=== PATIENT | female | born 1960 | race Caucasian/White ===

== ENCOUNTER 2020-03-20 10:36 | Emergency (ER) | payer OTHER ==
[2020-03-20] MEDS ORDERED: HYDROmorphone 0.5 MG/0.5 ML Syringe IVPUSH ONE ×3 (11:08→15:03)
[2020-03-20] MEDS ORDERED: Metoclopramide 10 MG/2 ML SDV IVPUSH ONE (11:08)
--- NOTE | 2020-03-20 11:13 | EDM.PDOC ---
ED HPI GENERAL MEDICAL PROBLEM - General Chief Complaint: Lower Extremity Injury/Pain Stated Complaint: RT ANKLE INJURY Time Seen by Provider: 03/20/20 11:07 Source of Information: Reports: Patient, Family History Limitations: Reports: No Limitations - History of Present Illness INITIAL COMMENTS - FREE TEXT/NARRATIVE: 59-year-old female presents to the ED with an acute injury to her right ankle. She states she missed 1 of the stairs coming out of there recreational vehicle this morning and landed hard on the ground with a twisting injury to the ankle. It did cause her to fall to the ground but she claims no injuries to her head neck hands ribs or shoulders. Her right ankle is obviously deformed and foot is white in color. Injury occurred within the last half hour. No open wounds identified. Male was around 0730 hrs. this morning and when she had pancakes and a bit of [place]. Onset: Today, Sudden Onset Date: 03/20/20 Onset Time: 10:30 Duration: Minutes: Location: Reports: Lower Extremity, Right (Injury to the right ankle.) Quality: Reports: Ache, Throbbing Severity: Severe Improves with: Reports: Rest (9 out of 10) Worsens with: Reports: Other Context: Reports: Trauma (Trip injury causing severe twisting force to the right ankle.). Denies: Activity, Exercise (Any attempts to move the ankle causes severe pain.), Lifting, Sick Contact Associated Symptoms: Reports: No Other Symptoms Treatments CERAMICS TECHNICIAN: Reports: Other (see below) (None.) Right Ankle Pain Score (Numeric/FACES): 8 - Related Data Allergies Allergy/AdvReac Type Severity Reaction Status Date / Time No Known Allergies Allergy Verified 03/20/20 11:03 Home Meds: Home Meds Cyclobenzaprine [Flexeril] 10 mg PO BID #10 tab 03/20/20 [Rx] Esomeprazole [NexIUM] 40 mg PO DAILY 03/20/20 [History] Loratadine 10 mg PO DAILY 03/20/20 [History] oxyCODONE HCl/Acetaminophen [Percocet 5-325 mg Tablet] 1 - 2 each PO Q4H PRN #30 tablet 03/20/20 [Rx] Past Medical History HEENT History: Reports: Allergic Rhinitis Gastrointestinal History: Reports: GERD Social & Family History - Living Situation & Occupation Living situation: Reports: Review of Systems - Review of Systems Review Of Systems: See Below Constitutional: Reports: No Symptoms Eyes: Reports: No Symptoms Ears: Reports: No Symptoms Nose: Reports: No Symptoms Mouth/Throat: Reports: No Symptoms Respiratory: Reports: No Symptoms Cardiovascular: Reports: No Symptoms GI/Abdominal: Reports: No Symptoms Genitourinary: Reports: No Symptoms Musculoskeletal: Reports: Other (Injury to the right ankle.) Skin: Reports: No Symptoms Neurological: Reports: No Symptoms Psychiatric: Reports: No Symptoms ED EXAM, GENERAL - Physical Exam Exam: See Below Exam Limited By: No Limitations General Appearance: Alert, WD/WN, Moderate Distress, Other (Vitals were not entered into the chart at the time of exam.) Eye Exam: Bilateral Eye: Normal Inspection, PERRL Head: Atraumatic, Normocephalic, Other Neck: Normal Inspection (No outward signs of head or facial trauma.), Supple, Non-Tender, Full Range of Motion. No: Lymphadenopathy (L), Lymphadenopathy (R) Respiratory/Chest: No Respiratory Distress, Lungs Clear, Normal Breath Sounds Cardiovascular: Normal Peripheral Pulses, Regular Rate, Rhythm, No Edema, No Gallop, No Murmur, No Rub Peripheral Pulses: 1+: Posterior Tibial (R), Dorsalis Pedis (R), 2+: Dorsalis Pedis (L) (Does have palpable pulses in her dorsalis pedis.) GI/Abdominal: Normal Bowel Sounds, Soft, Non-Tender, No Organomegaly, No Mass, Pelvis Stable Extremities: Other (Examination of the right lower extremity shows no pain on firm palpation over the proximal fibular head. Squeeze test midshaft causes pain in her ankle. On the ankle itself it is obviously fractured and appears to be dislocated. The foot is white in color but there is still a palpable dorsalis pedis pulse. No attempts to move the foot were carried out.) Neurological: Alert, Oriented, CN II-XII Intact, Normal Cognition Psychiatric: Anxious, Other Skin Exam: Warm, Dry (Deal of pain.), Intact, Normal Color ED TRAUMA EXTREMITY PROCEDURES - Splinting Right Lower Extremity Pre-Procedure NV Status: Normal Post-Procedure NV Status: Normal (Below knee right leg) Splint Material: Fiberglass Splint Design: Stirrup, Posterior Applied & Form Fitted By: Provider Provider Post-Splint Application NV Check: NV Status Normal Complications: No ED PROCEDURAL SEDATION - Pre Procedure Indications: fracture reduction Preparations: procedure explained, consent signed, oxygen, continuous pulse oximeter, suction, continuous mounter sousaphones, constant attendance - Physical Exam Airway: normal anatomy Cardiovascular: normal heart sounds Respiratory: normal breath sounds Neurological: alert, responsive, NAD Meilampati Classification: 1 (soft palate, anterior/posterior tonsillar pill ars, uvula visible) - Procedure Sedation Sedation: versed (parenteral), fentanyl (4 mg 50 mcg) ASA Classification: 1 (Normal healthy patient) - Intra Procedure Condition during procedure: moderately sedated, oxygenation stable, maintained airway well, handled secretions adequately Complications: none Reversal: none - Post Procedure Condition after procedure: alert, NAD, responds to verbal stimuli - Discharge Condition Patient returned to pre-procedure baseline: Yes Alert prior to discharge: Yes Ambulatory with assistance: Yes Vital signs normal: Yes Time spent with sedated patient: other (15 minutes) EKG INTERPRETATION EKG Date: 03/20/20 Time: 11:20 Rhythm: NSR Rate (Beats/Min): 90 [place]: Normal P-Wave: Present (That her left atrial enlargement. P wave is inverted in lead V1 nonspecific finding) QRS: Other (Mildly decreased voltage limb leads) ST-T: Normal QT: Prolonged (Minimally prolonged.) EKG Interpretation Comments: Borderline ECG Course - Vital Signs Last Recorded V/S: Last Vital Signs Temp 35.9 C L 03/20/20 11:00 Pulse 86 03/20/20 11:00 Resp 16 03/20/20 11:00 BP 155/85 H 03/20/20 11:00 Pulse Ox 98 03/20/20 11:00 - Orders/Labs/Meds Orders: Active Orders 24 hr Category Date Time Status EKG Documentation Completion [RC] STAT Care 03/20/20 11:15 Active CORONAVIRUS COVID-19 RUSS [MOLEC] Stat Lab 03/20/20 11:31 Ordered CORONAVIRUS COVID-19 PCR PHL Stat Lab 03/20/20 11:32 Ordered URINALYSIS W/MICROSCOPIC [UA W/MICROSCOPIC] [URIN] Stat Lab 03/20/20 11:16 Ordered Dextrose 5%-Lactated Ringers 1,000 ml Med 03/20/20 11:15 Active IV ASDIRECTED Durable Medical Equipment for Discharge [DME for Oth 03/20/20 13:08 Ordered Discharge] [COMM] Stat Medication Orders Dextrose/Lactated Ringer's (Dextrose 5%-Lactated Ringers) 1,000 mls @ 150 mls/hr IV ASDIRECTED VERONICA Last Admin: 03/20/20 11:30 Dose: 150 mls/hr Documented by: ASHLEY Labs: Laboratory Tests 03/20/20 03/20/20 03/20/20 Range/Units 11:25 11:25 11:25 WBC 8.01 (3.98-10.04) K/mm3 RBC 5.40 H (3.98-5.22) M/mm3 Hgb 16.3 H (11.2-15.7) gm/dl Hct 48.1 H (34.1-44.9) % MCV 89.1 (79.4-94.8) fl MCH 30.2 (25.6-32.2) pg MCHC 33.9 (32.2-35.5) g/dl RDW Std Deviation 41.6 (36.4-46.3) fL Plt Count 252 (182-369) K/mm3 MPV 9.5 (9.4-12.3) fl Neut % (Auto) 43.1 (34.0-71.1) % Lymph % (Auto) 47.1 (19.3-51.7) % [place] % (Auto) 7.6 (4.7-12.5) % Eos % (Auto) 1.6 (0.7-5.8) Baso % (Auto) 0.4 (0.1-1.2) % Neut # (Auto) 3.45 (1.56-6.13) K/mm3 Lymph # (Auto) 3.77 H (1.18-3.74) K/mm3 [place] # (Auto) 0.61 H (0.24-0.36) K/mm3 Eos # (Auto) 0.13 (0.04-0.36) K/mm3 Baso # (Auto) 0.03 (0.01-0.08) K/mm3 PT 10.5 (9.7-12.0) SECONDS INR 0.96 APTT 21 L (22-31) SECONDS Sodium 144 (136-145) mEq/L Potassium 3.5 (3.5-5.1) mEq/L Chloride 106 (98-107) mEq/L Carbon Dioxide 27 (21-32) mEq/L Anion Gap 14.5 (5-15) BUN 18 (7-18) mg/dL Creatinine 1.4 H (0.55-1.02) mg/dL Est Cr Clr Drug Dosing 31.85 mL/min Estimated GFR (MDRD) 39 (>60) mL/min BUN/Creatinine Ratio 12.9 L (14-18) Glucose 136 H (74-106) mg/dL Calcium 9.8 (8.5-10.1) mg/dL Magnesium 2.1 (1.8-2.4) mg/dl Total Bilirubin 0.6 (0.2-1.0) mg/dL AST 15 (15-37) U/L ALT 36 (14-59) U/L Alkaline Phosphatase 77 (46-116) U/L Total Protein 6.9 (6.4-8.2) g/dl Albumin 4.0 (3.4-5.0) g/dl Globulin 2.9 gm/dL Albumin/Globulin Ratio 1.4 (1-2) Meds: Medications Generic Name Dose Route Start Last Admin Trade Name Freq PRN Reason Stop Dose Admin Dextrose/Lactated Ringer's 1,000 mls @ 150 mls/hr 03/20/20 11:15 03/20/20 11:30 Dextrose 5%-Lactated Ringers IV 150 mls/hr ASDIRECTED VERONICA Administration Discontinued Medications Generic Name Dose Route Start Last Admin Trade Name Freq PRN Reason Stop Dose Admin Fentanyl 100 mcg 03/20/20 12:07 03/20/20 12:42 Sublimaze IVPUSH 03/20/20 12:08 50 mcg ONETIME ONE Administration Hydromorphone HCl 0.5 mg 03/20/20 11:08 03/20/20 11:26 Dilaudid IVPUSH 03/20/20 11:09 0.5 mg ONETIME ONE Administration Hydromorphone HCl 0.5 mg 03/20/20 11:55 03/20/20 12:02 Dilaudid IVPUSH 03/20/20 11:56 0.5 mg ONETIME ONE Administration Hydromorphone HCl 0.5 mg 03/20/20 15:03 Dilaudid IVPUSH 03/20/20 15:04 ONETIME ONE Metoclopramide HCl 7.5 mg 03/20/20 11:08 03/20/20 11:24 Reglan IVPUSH 03/20/20 11:09 7.5 mg ONETIME ONE Administration Midazolam HCl 6 mg 03/20/20 12:30 03/20/20 12:48 Versed 1 Mg/Ml IVPUSH 03/20/20 12:31 2 mg ONETIME ONE Administration - Radiology Interpretation Free Text/Narrative:: 59-year-old female presents to the ED with an acute injury to her right ankle. This occurred while she was stepping down 3 stairs from her RV this morning. She missed the last step and landed hard on the ground resulting in a twisting force to her right ankle. Examination reveals an obvious deformity to the right ankle with white discoloration of her foot suggesting compromised blood flow although pulses pulses are palpable in the dorsalis pedis at present. Plan x- ray of the right tib-fib and ankle to be done. IV will be D5 normal saline at 150 mils per hour. Given Dilaudid 0.5 mg IV and Reglan 7.5 mg IV for pain and nausea relief. Routine labs will be collected - Re-Assessments/Exams Free Text/Narrative Re-Assessment/Exam: 03/20/20 11:55 x-rays of the tib-fib on the right side reveal a fracture of the distal fibula with malposition with foreshortening.. There is also a fracture of the distal tibia with medial dislocation of the tibia on the talus. Talus is shifted laterally. Displaced medial malleolus fracture is noted. Fracture is also noted within the posterior malleolus. Fracture is also noted within the lateral corner of the distal tibia. Case will be discussed lena with on-call orthopedic surgeon Dr. Ngo. Patient is still having significant pain in the ankle. Will repeat Dilaudid 0.5 mg IV. Chest x-ray reveals heart size to be normal. Mild tortuosity of the thoracic aorta is seen. Lungs are clear with no acute parenchymal changes. Bony structures are unremarkable. 03/20/20 12:11 did discuss the case with Dr. York on-call orthopedic surgeon and he suggested that we perform reduction of the fractured dislocated ankle. This will be done under conscious sedation using Versed and fentanyl. He indicates that usually these fractures are fixed 10 to 14 days post injury because of the large amount of soft tissue swelling. After discussion with the patient and his they are on RV vacation and retired. They are thinking they want to have it fixed here and I will discuss this with Dr. Ngo arrange follow-up appointment. Te. Of note they are from [place] and do not wish to travel all the way back to [place] just for ankle repair. Today she will have reduction of the dislocation and placement of Ortho-Glass splint and I will have her call Dr. Ngo's office tomorrow morning. She will be nonweightbearing crutch walking. She will elevate the foot as much as possible for the next 3 days and apply ice pack to the area 1/2-hour out of every 4 wiley rs. Percocet tabs 5/325 mg will be used 1 or 2 every 4-6 hour as needed for pain relief. MiraLAX powder 17 g once daily to prevent constipation from the narcotics. 03/20/20 13:01 patient reached seems conscious sedation utilizing 4 mg of Versed IV and 50 mcg of fentanyl. She had reduction of her dislocation of her right ankle. Ortho-Glass posterior splint applied as well as a stirrup splint to maintain current position of fractures. Postreduction x-rays are to be obtained. 03/20/20 13:09 postreduction films show adequate reduction of the dislocation of the tibia on the talus. The medial malleolus fracture is now much more evident. Posterior malleolus fracture evident as well. Fracture distal fibula is lined up. She will be nonweightbearing crutch walking. She will elevate the foot as much as possible for the next 3 days and apply ice pack 1/2-hour out of every 3 hours[address] They will call Dr. Ngo's office tomorrow to arrange a appointment for consultation and return at a later date for surgical repair. At home with Percocet tabs 5/325 mg x 28 tablets for pain relief. 03/20/20 15:08 and is alert and oriented and able to answer all questions quite appropriately. She is getting quite a bit of muscle spasms in her foot and leg. I am going to give her another 0.5 mg of Dilaudid before discharge in the care of her . Prescription written for Percocet tabs and for cyclobenzaprine 10 mg every 12 hours for muscle spasm x5 days. Departure - Departure Time of Disposition: :04 Disposition: Home, Self-Care 01 Condition: Fair Clinical Impression: Fracture of tibia AND fibula, Bimalleolar fracture of ankle Closed fracture dislocation of right ankle joint Qualifiers: Encounter type: initial encounter Qualified Code(s): S82.891A - Other fracture of right lower leg, initial encounter for closed fracture - Discharge Information *PRESCRIPTION DRUG MONITORING PROGRAM REVIEWED*: Not Applicable *COPY OF PRESCRIPTION DRUG MONITORING REPORT IN PATIENT KALEB: Not Applicable Prescriptions: Cyclobenzaprine [Flexeril] 10 mg PO BID #10 tab oxyCODONE HCl/Acetaminophen [Percocet 5-325 mg Tablet] 1 - 2 each PO Q4H PRN #30 tablet PRN Reason: pain relief. Instructions: Displaced Medial or Posterior Malleolar Ankle Fracture Treated With ORIF Referrals: PCP,Not In Area [Primary Care Provider] - Forms: ED Department Discharge Additional Instructions: Evaluation in the emergency room today in regards to acute injury to your right ankle while stepping down your RV steps this morning. You landed hard after slipping off of 1 of the stairs with a tremendous twist injury to your right ankle. This is resulted in a fracture of the distal fibula. It is fracture of the tibia in 2 places medial malleolus and posterior malleolus fractures as well as a dislocation of the tibia on the talus. You required conscious sedation to reduce your ankle back to normal anatomical position and maintained in this position with a Ortho-Glass posterior slab and stirrup splint. You will need to elevate your leg as much as possible for the next 3 days to help minimize the swelling. Ice pack to the area 1/2-hour out of every 4 hours for the next 3 days. Pain medication to be Motrin 600 mg every 6 hours as needed for pain relief or Aleve 2 tablets every 8 hours. Percocet tabs 5/325 mg strength 1 or 2 every 4-6 hours for pain relief as needed. He also use Flexeril 10 mg every 12 hours as needed for muscle spasms in your lower extremity for the next 4 to 5 days. Suggest purchasing MiraLAX powder 17 g or 1 scoop daily to prevent constipation from the pain medication which is very common. Please phone Dr. Ngo's office tomorrow to arrange a surgical consultation. He feels the surgery would be better performed once the soft tissue swelling has gone down in 10 to 14 days time. The number to call is [phone]. Sepsis Event Note (ED) - Focused Exam Vital Signs: Vital Signs Temp Pulse Resp BP Pulse Ox 03/20/20 11:00 35.9 C L 86 16 155/85 H 98 - My Orders Last 24 Hours: My Active Orders 03/20/20 11:15 EKG Documentation Completion [RC] STAT Dextrose 5%-Lactated Ringers 1,000 ml IV ASDIRECTED 03/20/20 11:16 URINALYSIS W/MICROSCOPIC [UA W/MICROSCOPIC] [URIN] Stat 03/20/20 11:31 CORONAVIRUS COVID-19 RUSS [MOLEC] Stat 03/20/20 11:32 CORONAVIRUS COVID-19 PCR PHL Stat 03/20/20 13:08 Durable Medical Equipment for Discharge [DME for Discharge] [COMM] Stat - Assessment/Plan Last 24 Hours: My Active Orders 03/20/20 11:15 EKG Documentation Completion [RC] STAT Dextrose 5%-Lactated Ringers 1,000 ml IV ASDIRECTED 03/20/20 11:16 URINALYSIS W/MICROSCOPIC [UA W/MICROSCOPIC] [URIN] Stat 03/20/20 11:31 CORONAVIRUS COVID-19 RUSS [MOLEC] Stat 03/20/20 11:32 CORONAVIRUS COVID-19 PCR PHL Stat 03/20/20 13:08 Durable Medical Equipment for Discharge [DME for Discharge] [COMM] Stat
[2020-03-20] MEDS ORDERED: Dextrose 5%-Lactated Ringers 1,000 ML IV SCH (11:15)
[2020-03-20] MEDS ORDERED: fentaNYL 100 MCG/2 ML SDV IVPUSH ONE (12:07)
[2020-03-20] MEDS ORDERED: Midazolam 1 MG/ML 5 ML SDV IVPUSH ONE (12:07)
--- NOTE | 2020-03-20 12:08 | CR ---
Chest: AP view of the chest was obtained. Comparison: No prior chest imaging is available. Heart size is normal. Mild tortuosity of the thoracic aorta is seen. Lungs are clear with no acute parenchymal change. Bony structures are unremarkable. Impression: 1. Nothing acute is seen on AP chest x-ray. Diagnostic code #1 This report was dictated in MDT
--- NOTE | 2020-03-20 12:09 | CR ---
Right tibia and fibula: 2 views of the right tibia and fibula were obtained. Comparison: No prior right tibia or fibula study. Distal fibular shaft fracture is seen with displacement and foreshortening. Partial dislocation of the tibiotalar joint. Talus is shifted laterally. Displaced medial malleolus fracture is noted. Fracture is noted within the posterior malleolus. Fracture also noted within the lateral corner of the distal tibia. Impression: 1. Fracture dislocation as noted above. Diagnostic code #5 This report was dictated in MDT
--- NOTE | 2020-03-20 12:10 | CR ---
Right ankle: 4 views of right ankle were obtained. Displaced distal fibular diaphyseal fracture is seen with foreshortening. Lateral view shows apex anterior angulation of the fibular shaft fracture. Dislocation of the tibia is seen in an anterior and medial direction. Fracture is noted within the lateral edge of the tibia as well as medial malleolus fracture and posterior malleolus fracture. Diffuse soft tissue swelling is noted. Impression: 1. Fracture and dislocation as described above. Diagnostic code #5 This report was dictated in MDT
[2020-03-20] MEDS: Midazolam 1 MG/ML 2 ML SDV IVPUSH ONE ×2 (12:40→12:48)
--- NOTE | 2020-03-20 13:18 | CR ---
Right ankle: 3 views of the right ankle were obtained. Comparison: Previous ankle exam performed earlier on the same day (11:31 AM. Previous dislocation has been reduced. Distal fibular shaft fracture is seen. Slightly displaced medial malleolar fracture is seen. Mildly displaced posterior malleolar fracture is also noted. Fiberglass cast or splint is in place. No additional abnormality is appreciated. Soft tissue swelling is present. Impression: 1. Previous dislocation has been reduced. 2. Fractures as noted above. Diagnostic code #3 This report was dictated in MDT
[2020-03-21] MEDS ORDERED: Midazolam 1 MG/ML 2 ML SDV ONE (11:38)
[2020-03-21] MEDS ORDERED: fentaNYL 100 MCG/2 ML SDV ONE (11:38)
[2020-03-21] MEDS ORDERED: Propofol 200 MG/20 ML SDV ONE (11:38)
== END 2020-03-20 15:30 | disposition home or self-care (01) ==
LOC: JD.ED 10:36
DX: S82.841A Displaced bimalleolar fracture of right lower leg, initial encounter for closed fracture (principal); K21.9 Gastro-esophageal reflux disease without esophagitis; Z79.899 Other long term (current) drug therapy; X50.1XXA Overexertion from prolonged static or awkward postures, initial encounter
CPT/HCPCS: 27840; 36415; 71045; 73590; 73600; 73610; 80053; 83735; 85025; 85610; 85730; 93005; 96374; 96375; 96376; 99152; 99284; J1170; J2250; J2765; J3010; J7121; 99283

== ENCOUNTER 2020-03-21 11:31 | Emergency (ER) | payer OTHER ==
--- NOTE | 2020-03-21 11:49 | PCM.PREANE ---
Preanesthetic Assessment - Procedure Proposed Procedure: closed reduction right ankle - Anesthesia/Transfusion/Family Hx Anesthesia History: Prior Anesthesia Without Reaction Family History of Anesthesia Reaction: No Transfusion History: No Prior Transfusion(s) - Review of Systems General: No Symptoms Pulmonary: No Symptoms Cardiovascular: No Symptoms Gastrointestinal: No Symptoms Neurological: No Symptoms Other: Reports: None - Physical Assessment NPO Status Date: 03/21/20 (cereal and banana) NPO Status Time: 07:30 Vital Signs: 80 94% 20 155/93 Height: 5 ft Weight: 63.503 kg ASA Class: 2 Mental Status: Alert & Oriented x3 Airway Class: Mallampati = 2 Dentition: Reports: Normal Dentition Thyro-Mental Finger Breadths: 3 Mouth Opening Finger Breadths: 3 ROM/Head Extension: Full Lungs: Clear to Auscultation, Normal Respiratory Effort Cardiovascular: Regular Rate, Regular Rhythm, No Murmurs - Allergies Allergies/Adverse Reactions: Allergies Allergy/AdvReac Type Severity Reaction Status Date / Time No Known Allergies Allergy Verified 03/20/20 11:03 - Blood Blood Available: No - Acknowledgements Anesthesia Type Planned: MAC Pt an Appropriate Candidate for the Planned Anesthesia: Yes Alternatives and Risks of Anesthesia Discussed w Pt/Guardian: Yes Pt/Guardian Understands and Agrees with Anesthesia Plan: Yes PreAnesthesia Questionnaire HEENT History: Reports: Allergic Rhinitis Other HEENT History: wears eyeglasses. Hx of floaters. 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: Musculoskeletal History: Reports: Fracture Psychiatric History: Reports: None Oncologic (Cancer) History: Reports: None Dermatologic History: Reports: Eczema - Infectious Disease History Infectious Disease History: Reports: Chicken Pox - Past Surgical History HEENT Surgical History: Reports: Oral Surgery GI Surgical History: Reports: Colonoscopy - SUBSTANCE USE Smoking Status *Q: Never Smoker Tobacco Use Within Last Twelve Months: No Second Hand Smoke Exposure: No Days Per Week of Alcohol Use: 0 Recreational Drug Use History: No - HOME MEDS Home Medications: Home Meds Cyclobenzaprine [Flexeril] 10 mg PO BID #10 tab 03/20/20 [Rx] Esomeprazole [NexIUM] 40 mg PO DAILY 03/20/20 [History] Loratadine 10 mg PO DAILY 03/20/20 [History] oxyCODONE HCl/Acetaminophen [Percocet 5-325 mg Tablet] 1 - 2 each PO Q4H PRN #30 tablet 03/20/20 [Rx]
[2020-03-21] MEDS ORDERED: HYDROmorphone 0.5 MG/0.5 ML Syringe IVPUSH ONE (12:08)
[2020-03-21] MEDS ORDERED: Dexamethasone 4 MG/ML 5 ML MDV ONE (14:28)
[2020-03-21] MEDS ORDERED: Ropivacaine 0.5% 5 MG/ML 30 ML SDV ONE (14:29)
--- NOTE | 2020-03-21 14:43 | PCM.PRNOTE ---
- Free Text/Narrative Note: Post-procedure pain control requested by surgeon. Pre-op Dx: Rt Ankle Fracture Surgical procedure: Right Ankle close reduction and casting Anesthesia Procedure: Right Popliteal block with U/S guidance (post-procedural) Requesting physician: Dr. Gar Ct Risks and benefits discussed with the patient before the surgical procedure including infection, bleeding, incomplete or failed block, possible nerve damage, local anesthetic toxicity. Chart reviewed, VS stable. Permit signed. Patient in trauma bay1 area, stable, drowsy but arousable after the sedation for closed reduction procedure, positioned in left lateral decubitus with pillow support. Time out performed at 14:00. Oxygen 5L via NC. Right lateral thigh area above the knee was prepped with Chloraprep x 1 and allowed to dry. Under aseptic technique, the Right common peroneal and tibial nerves were identified under ultrasound prior to needle insertion. Local infiltration with 1% Lidocaine 2 cc. 4" Stimuplex needle #22 G was inserted under US guidance. Under direct visualization of needle tip the injection of 0.5% Ropivacaine with 5 mg of Dexamethasone, total of 30 mls in divided doses, maintaining negative aspiration was completed without problems, observing circumferential local anesthetic spread around the nerves. No local anesthetic toxicity was noted. Patient is awake, stable and tolerated the procedure well. Time: 14:00 - 14:12
--- NOTE | 2020-03-22 07:18 | CR ---
Right ankle: 2 views of the right ankle were obtained. Comparison: Previous right ankle study of 03/20/20. Displaced distal fibular shaft fracture is noted by about one shaft width. Ankle mortise appears fairly symmetric. Mildly displaced posterior malleolus fracture is noted. Medial malleolus fracture is seen which appears fairly anatomic in alignment. Plaster cast or splint is in place. Impression: 1. Fracture as noted above. Plaster cast or splint in place. Diagnostic code #2 This report was dictated in MDT
== END 2020-03-21 15:05 | disposition home or self-care (01) ==
LOC: JD.ED 11:31
DX: G43.909 Migraine, unspecified, not intractable, without status migrainosus (principal); E03.9 Hypothyroidism, unspecified; E07.9 Disorder of thyroid, unspecified; F31.9 Bipolar disorder, unspecified; S82.891A Other fracture of right lower leg, initial encounter for closed fracture
CPT/HCPCS: 27768; 73600; 96374; 99283; J1100; J1170; J2250; J2704; J2795; J3010; 01462; 64445

== ENCOUNTER 2020-03-31 06:50 | Day surgery (SDC) | payer OTHER ==
[~2020-03-31 06:50] MED LIST: Lactated Ringers 1,000 ML IV SCH; Lidocaine 1%/Sod Bicarbonate in NS 8.4% 1 ML Syringe IDERM PRN; Sodium Chloride 0.9% 10 ML Syringe FLUSH PRN
[2020-03-31] MEDS ORDERED: Ropivacaine 0.5% 5 MG/ML 30 ML SDV ONE (06:56)
[2020-03-31] MEDS ORDERED: Propofol 200 MG/20 ML SDV ONE ×2 (06:58→09:08)
[2020-03-31] MEDS ORDERED: Midazolam 1 MG/ML 2 ML SDV ONE (06:58)
[2020-03-31] MEDS ORDERED: fentaNYL 100 MCG/2 ML SDV ONE (06:58)
[2020-03-31] MEDS ORDERED: Lidocaine 1% 6 ML ONE (06:59)
[2020-03-31] MEDS ORDERED: ceFAZolin 1 GM Vial ONE (06:59)
[2020-03-31] MEDS ORDERED: Lidocaine 2% with EPINEPHrine 1:200,000 20 ML SDV ONE (06:59)
[2020-03-31] MEDS ORDERED: Dexamethasone 4 MG/ML 5 ML MDV ONE (07:00)
[2020-03-31] MEDS ORDERED: cloNIDine 1,000 MCG/10 ML SDV ONE (07:06)
--- NOTE | 2020-03-31 07:17 | PCM.PREANE ---
Preanesthetic Assessment - Procedure Proposed Procedure: Right ankle ORIF - Anesthesia/Transfusion/Family Hx Anesthesia History: Prior Anesthesia Without Reaction Transfusion History: No Prior Transfusion(s) - Review of Systems General: No Symptoms Pulmonary: No Symptoms Cardiovascular: No Symptoms Gastrointestinal: No Symptoms Neurological: No Symptoms Other: Reports: None - Physical Assessment NPO Status Date: 03/30/20 NPO Status Time: 23:00 Vital Signs: in preop area BP: 148/98, HR 105, RR 16, SpO2 94% RA, T:96.8 F Weight: 63.4 kg ASA Class: 2 Mental Status: Alert & Oriented x3 Airway Class: Mallampati = 2 Dentition: Reports: Normal Dentition Thyro-Mental Finger Breadths: 3 Mouth Opening Finger Breadths: 3 ROM/Head Extension: Full Lungs: Clear to Auscultation, Normal Respiratory Effort Cardiovascular: Regular Rate, Regular Rhythm - Lab Values: Laboratory Last Values COVID-19 PCR Not detected (NOT DETECT) 03/28/20 11:45 MRSA (PCR) Negative 03/23/20 15:24 - Allergies Allergies/Adverse Reactions: Allergies Allergy/AdvReac Type Severity Reaction Status Date / Time No Known Allergies Allergy Verified 03/30/20 14:33 - Acknowledgements Anesthesia Type Planned: General Anesthesia, Regional Block (right popliteal for postoperative pain control), MAC Pt an Appropriate Candidate for the Planned Anesthesia: Yes Alternatives and Risks of Anesthesia Discussed w Pt/Guardian: Yes Pt/Guardian Understands and Agrees with Anesthesia Plan: Yes PreAnesthesia Questionnaire HEENT History: Reports: Allergic Rhinitis Other HEENT History: wears eyeglasses. Hx of floaters. Cardiovascular History: Reports: None Respiratory History: Reports: Asthma Gastrointestinal History: Reports: GERD Genitourinary History: Reports: UTI, Recurrent [employer] History: Reports: Musculoskeletal History: Reports: Fracture Neurological History: Reports: None Psychiatric History: Reports: None Endocrine/Metabolic History: Reports: None Hematologic History: Reports: None Immunologic History: Reports: None Oncologic (Cancer) History: Reports: None Dermatologic History: Reports: Eczema - Infectious Disease History Infectious Disease History: Reports: Chicken Pox - Past Surgical History Head Surgeries/Procedures: Reports: None HEENT Surgical History: Reports: Oral Surgery Cardiovascular Surgical History: Reports: None Respiratory Surgical History: Reports: None GI Surgical History: Reports: Colonoscopy Female Surgical History: Reports: None Male Surgical History: Reports: None Endocrine Surgical History: Reports: None Neurological Surgical History: Reports: None Musculoskeletal Surgical History: Reports: None Oncologic Surgical History: Reports: None Dermatological Surgical History: Reports: None - SUBSTANCE USE Smoking Status *Q: Never Smoker Recreational Drug Use History: No - HOME MEDS Home Medications: Home Meds Esomeprazole [NexIUM] 40 mg PO DAILY 03/20/20 [History] Loratadine 10 mg PO DAILY 03/20/20 [History] Aspirin 325 mg PO BID #84 tab 03/31/20 [Rx] oxyCODONE HCl/Acetaminophen [Percocet 5-325 mg Tablet] 1 - 2 each PO Q4H PRN #20 tablet 03/31/20 [Rx] - CURRENT (IN HOUSE) MEDS Current Meds: Current Medications Lactated Ringer's (Ringers, Lactated) 1,000 mls @ 125 mls/hr IV ASDIRECTED VERONICA Stop: 03/31/20 23:00 Lidocaine/Sodium Bicarbonate (Buffered Lidocaine 1% In Ns 8.4%) 0.25 ml IDERM ONETIME PRN PRN Reason: Prior to IV Start Stop: 03/31/20 18:00 Sodium Chloride (Saline Flush) 10 ml FLUSH ASDIRECTED PRN PRN Reason: Keep Vein Open Stop: 03/31/20 18:00 Discontinued Medications Cefazolin Sodium (Ancef) Confirm Administered Dose 2 gm .ROUTE .STK-MED ONE Stop: 03/31/20 07:00 Clonidine HCl (Duraclon) Confirm Administered Dose 1,000 mcg .ROUTE .STK-MED ONE Stop: 03/31/20 07:07 Dexamethasone (Dexamethasone) Confirm Administered Dose 20 mg .ROUTE .STK-MED ONE Stop: 03/31/20 07:01 Fentanyl (Sublimaze) Confirm Administered Dose 100 mcg .ROUTE .STK-MED ONE Stop: 03/31/20 06:59 Lidocaine HCl (Xylocaine-Mpf 1%) Confirm Administered Dose 6 mls @ as directed .ROUTE .STK-MED ONE Stop: 03/31/20 07:00 Lidocaine/Epinephrine (Xylocaine-Mpf 2%-Epi 1:200,000) Confirm Administered Dose 20 ml .ROUTE .STK-MED ONE Stop: 03/31/20 07:00 Midazolam HCl (Versed 1 Mg/Ml) Confirm Administered Dose 4 mg .ROUTE .STK-MED ONE Stop: 03/31/20 06:59 Propofol (Diprivan 20 Ml) Confirm Administered Dose 400 mg .ROUTE .STK-MED ONE Stop: 03/31/20 06:59 Ropivacaine (Naropin 0.5%) Confirm Administered Dose 30 ml .ROUTE .STK-MED ONE Stop: 03/31/20 06:57
[2020-03-31] MEDS ORDERED: Bupivacaine 0.25% 10 ML SDV ONE (07:18)
[2020-03-31] MEDS ORDERED: Ondansetron 4 MG/2 ML SDV ONE (08:37)
--- NOTE | 2020-03-31 08:48 | PCM.PRNOTE ---
- Free Text/Narrative Note: Postoperative pain control requested by surgeon. Pre-op Dx: Rt Ankle Fracture Surgical procedure: Right Ankle fracture ORIF Anesthesia Procedure: Right Popliteal block with U/S guidance Requesting physician: Dr. Cong Noel Risks and benefits discussed with the patient before the surgical procedure including infection, bleeding, incomplete or failed block, possible nerve damage, local anesthetic toxicity. Chart reviewed, VS stable. Permit signed. Patient in preoperative area, stable, awake and alert, positioned in left lateral decubitus with pillow support. Time out performed at 07:40. Oxygen 3L via NC. Right lateral thigh area above the knee was prepped with Chloraprep x 1 and allowed to dry. Under aseptic technique, the right common peroneal and tibial nerves were identified under ultrasound prior to needle insertion. Local infiltration with 1% Lidocaine 2 cc. 4" Stimuplex needle #22 G was inserted under US guidance. Under direct visualization of needle tip the injection of 0.5% Ropivacaine (18 mls), 2% Lidocaine with 1:200k of epinephrine (10 mls) 6 mg of Dexamethasone, 100 mcg of Clonidine, total volume of 30 mls in divided doses, maintaining negative aspiration was completed without problems, observing circumferential local anesthetic spread around the nerves. No local anesthetic toxicity was noted. Patient is awake, stable and tolerated the procedure well. Please see the attached U/S images. Time: 07:40 - 07:50
[2020-03-31] MEDS ORDERED: fentaNYL 100 MCG/2 ML SDV IVPUSH PRN (09:32)
[2020-03-31] MEDS ORDERED: HYDROmorphone 0.5 MG/0.5 ML Syringe IVPUSH PRN (09:32)
--- NOTE | 2020-03-31 10:49 | CR ---
Right ankle: 8 fluoroscopic spot views were obtained utilizing C-arm device of the right ankle. Comparison: Prior right ankle study of 03/21/20. Findings: Study shows placement of plate and screws across previous distal fibular shaft fracture. Single screw fixes the fibula to the tibia. 2 cannulated screws are seen affixing previous medial malleolus fracture. Ankle mortise is symmetric. No additional abnormality is appreciated. Fluoroscopy time is given as 42.9 seconds. Impression: 1. Procedural study as described above. Diagnostic code #2 This report was dictated in MDT
[2020-03-31] MEDS ORDERED: Acetaminophen/oxyCODONE 325-5 MG Tab PO PRN (10:59)
--- NOTE | 2020-03-31 11:25 | PCM48HPAN ---
Post Anesthesia Note - EVALUATION WITHIN 48HRS OF ANESTHETIC Vital Signs in Normal Range: Yes Patient Participated in Evaluation: Yes Respiratory Function Stable: Yes Airway Patent: Yes Cardiovascular Function Stable: Yes Hydration Status Stable: Yes Pain Control Satisfactory: Yes Nausea and Vomiting Control Satisfactory: Yes Mental Status Recovered: Yes Vital Signs: Last Vital Signs Temp 97.6 F 03/31/20 10:03 Pulse 103 H 03/31/20 11:00 Resp 16 03/31/20 11:00 BP 126/82 03/31/20 11:00 Pulse Ox 95 03/31/20 11:00
--- NOTE | 2020-03-31 11:36 | PCM.PRNOTE ---
- Free Text/Narrative Note: Postoperative pain control requested by surgeon. Pre-op Dx: Rt Ankle Fracture Surgical procedure: Right Ankle fracture ORIF Anesthesia Procedure: Right SUPPLEMENTARY saphenous nerve block below the knee block with U/S guidance Requesting physician: Dr. Gar Ct Risks and benefits discussed with the patient BEFORE the surgical procedure including infection, bleeding, incomplete or failed block, possible nerve damage, local anesthetic toxicity. Chart reviewed, VS stable. Permit signed. Patient is AFTER THE SURGERY in postoperative area, stable, drowsy after sedation, supine. Time out performed at 10:07. The medial surface of the right leg BELOW the knee was prepped with Chloraprep a nd allowed to dry. Under ultrasound guidance left great saphenous vein was identified and 3.5" Quincke needle total volume of 10 mls of Ropivacaine 0.5% (6 ml) and 2% Lidocaine with 1:200k epinephrine (4 ml) were injected around it in a crescent shape fashion. No local anesthetic toxicity was noted. stable and tolerated the procedure well. Please see the attached U/S image. Time: 10:07 - 10:11
--- NOTE | 2020-04-06 13:55 | PCM.OPNOTE ---
- General Post-Op/Procedure Note Date of Surgery/Procedure: 03/31/20 Operative Procedure(s): open reduction internal fixation of right bimalleolar ankle fracture with syndesmosis Pre Op Diagnosis: right bimalleolar ankle fracture with syndesmosis disruption Post-Op Diagnosis: Same Anesthesia Technique: Local, MAC, Regional Block Primary Surgeon: Cong Ngo Anesthesia Provider: Justin Rodriguez Permastone Installer: Taya Melo EBL in mLs: 10 Complications: None Condition: Good
--- NOTE | 2020-04-06 14:21 | OR ---
DATE OF OPERATION: 03/31/2020 SURGEON: Cong Ngo MD OPERATION PERFORMED: Open reduction and internal fixation of right bimalleolar ankle fracture with syndesmosis. PREOPERATIVE DIAGNOSIS: Right bimalleolar ankle fracture with syndesmotic disruption. POSTOPERATIVE DIAGNOSIS: Right bimalleolar ankle fracture with syndesmotic disruption. ANESTHESIA: Local MAC with regional block. ANESTHESIA PROVIDER: Justin Rodriguez. LIMOUSINE RENTAL CLERK: Taya Melo PA-C. ESTIMATED BLOOD LOSS: 10 mL. COMPLICATIONS: None. CONDITION: Stable. DESCRIPTION OF PROCEDURE: The patient was identified in the preoperative holding area. Proper site was marked and identified by the surgeon. The patient was taken back to the operating theater where after adequate anesthesia, the patient's right lower extremity had a nonsterile tourniquet applied and then sterilely prepped and draped in the usual sterile fashion. OR time-out was performed. The patient received 2 g IV Ancef. Right lower extremity was exsanguinated. Tourniquet was insufflated to 250 mmHg. Standard lateral incision was made over the fibular fracture. This was taken down to the fracture site. The superficial peroneal nerve was identified and retracted anteriorly. Fracture site was curetted and rongeured, all fracture hematoma as well as soft tissue. A lobster claw clamp was then used for reduction and an 8-hole Rustam 3.0 mm locking plate was then placed, and it was found to be in adequate position for syndesmotic screw placement as well. At this time, a nonlocking screw was placed both proximally and distally to the fracture site and the fracture was secured and then 1 more nonlocking screw and 2 locking screws were placed, proximal and distal to the fracture site. One of these was a tricortical syndesmotic screw with good fixation. At this point, the fracture site was reduced anatomically. The fibular length as well as dime sign were good and attention was turned to the medial side. Incision was made over the medial malleolus. The saphenous vein and nerve were retracted anteriorly. This was taken down to the fracture site that was curetted and rongeured of all fractured hematoma. Under direct C-arm fluoroscopy during the entire procedure, a [id number] reduction clamp was used for reduction of the medial malleolar fracture fragment. The guide pins for 4.0 cannulated Dazey screws were then placed and was found to have anatomic reduction. At this time, two 40 mm cannulated screws were then placed on the medial malleolus and was found to have anatomic reduction of the syndesmosis. A stress view was obtained and showed no widening of the ankle mortise with anatomic reduction. At this time, adequate saline was irrigated through both wounds. 2-0 Vicryl was used subcutaneously, and yuan were used for closure of skin. The patient was placed in a sterile soft dressing and a posterior slab splint and sent to the PACU in stable condition. MMKALNIA /[id number]
== END 2020-03-31 12:11 | disposition home or self-care (01) ==
LOC: JD.SDS 06:50
PROVIDERS: ATTEND Orthopaedic Surgery
DX: S82.841A Displaced bimalleolar fracture of right lower leg, initial encounter for closed fracture (principal); S93.431A Sprain of tibiofibular ligament of right ankle, initial encounter; K21.9 Gastro-esophageal reflux disease without esophagitis; J45.909 Unspecified asthma, uncomplicated; Z11.59 Encounter for screening for other viral diseases; Z79.899 Other long term (current) drug therapy; X50.1XXA Overexertion from prolonged static or awkward postures, initial encounter
CPT/HCPCS: 27814; 27829; 76000; 87635; 87641; C1713; C1776; J0690; J0735; J1100; J2001; J2250; J2405; J2704; J2795; J3010; J3490; J7120; 01480; 64450; U0002